=== PATIENT | female | born 1980 | race Caucasian/White ===

== ENCOUNTER 2018-04-29 02:01 | Emergency (ER) | payer BC, OTHER ==
[2018-04-29] MEDS ORDERED: IPRATROPIUM/ALBUTEROL 3 ML VIAL NEB ONE (02:27)
--- NOTE | 2018-04-29 02:39 | ED.PDOC ---
History of Present Illness - General Chief Complaint: Respiratory Problem Stated Complaint: coughing, 34 weeks Time Seen by Provider: 04/29/18 02:26 Source: patient Exam Limitations: no limitations - History of Present Illness Comments: Tashia Botello 37 y/o female 34w EGA LMP-11 Sep 2017 Ab0 EDC14 Jun 2017 came to er with non productive cough starting this am.No ill contact at home .denies fever ,SOB.Continue to smoke 1/2 ppd. Timing/Duration: this morning Cough Quality/Degree: moderate, dry cough Possible Cause: occasional episodes, allergen exposure Improving Factors: nothing Worsening Factors: nothing Associated Symptoms: nasal congestion, other - see hpi Respiratory Risk Factors: exposure to allergen Allergies/Adverse Reactions: Allergies Penicillins Allergy (Verified 04/29/18 02:36) Home Medications: Ambulatory Orders Albuterol Inhaler [Ventolin Hfa Inhaler] 108 mcg IN Q6HRS #1 inh 04/29/18 Azithromycin [Zithromax Z-Sundar] 250 mg PO DAILY 6 Days #6 tab 04/29/18 Review of Systems - Review of Systems Constitutional: States: no symptoms reported EENTM: States: see HPI, nose congestion Respiratory: States: see HPI, cough Gastrointestinal/Abdominal: States: no symptoms reported Genitourinary: States: no symptoms reported Musculoskeletal: States: no symptoms reported Skin: States: no symptoms reported Past Medical History (General) - Patient Medical History Hx Seizures: No Hx Asthma: No Hx of COPD: No Hx Cardiac Disorders: No Hx Congestive Heart Failure: No Hx Hypertension: No Surgical History: no surgical history - Vaccination History Hx Tetanus, Diphtheria Vaccination: No Hx Influenza Vaccination: Yes Hx Pneumococcal Vaccination: No - Social History Hx Tobacco Use: Yes Years Tobacco Use: 10 Cigarettes Packs Per Day: 10 Hx Alcohol Use: No Hx Physical Abuse: No Hx Emotional Abuse: No Hx Suspected Abuse: No - Activities of Daily Living Patient Lives Alone: No - Female History Patient is a Female of Child Bearing Age (10 -59 yrs old): Yes Hx Last Menstrual Period: 09/11/17 Patient : Yes Expected Date of Delivery:: 06/18/18 Hx Gestational Age: 34 Family Medical History - Family History Mother Family History: No Known Physical Exam - Physical Exam General Appearance: Alert, Comfortable, No apparent distress Eye Exam: bilateral normal ENT Exam: hearing grossly normal, TMs normal, pharynx normal, nasal congestion Neck: supple, normal inspection, trachea midline Respiratory: chest non-tender, lungs clear, normal breath sounds, no respiratory distress Cardiovascular/Chest: normal peripheral pulses, regular rate, rhythm, no murmur Gastrointestinal/Abdominal: non tender, soft, other - gravid uterus,FHR-138;FH-3 5 cms. Neurologic: alert, oriented x 3 Skin Exam: normal color, warm/dry Progress - Progress Progress: 04/29/18 02:42 Vital Signs - 8 hr 04/29/18 04/29/18 02:18 02:23 Temperature 98.5 F Pulse Rate [ 117 H left] Respiratory 22 24 Rate Blood Pressure 122/86 [left] O2 Sat by Pulse 94 L Oximetry - Results/Orders Results/Orders: Vital Signs - 8 hr 04/29/18 04/29/18 04/29/18 02:18 02:23 02:42 Temperature 98.5 F Pulse Rate 120 H Pulse Rate [ 117 H left] Respiratory 22 24 20 Rate Blood Pressure 122/86 [left] O2 Sat by Pulse 94 L 95 Oximetry - EKG/XRAY/CT XRAY: chest - no acute abnormalities Departure - Departure Clinical Impression: Bronchitis Time of Disposition: 03:58 Disposition: Discharge to Home or Self Care Condition: Fair Departure Forms: ED Discharge - Pt. Copy, Patient Portal Self Enrollment Instructions: Smoking: Not Just Harmful to Your Lungs and Heart, Smoking in Referrals: Denny Yu MD [Primary Care Provider] - 1-2 Weeks Prescriptions: Albuterol Inhaler [Ventolin Hfa Inhaler] 108 mcg IN Q6HRS #1 inh Azithromycin [Zithromax Z-Sundar] 250 mg PO DAILY 6 Days #6 tab Home Medications: Ambulatory Orders Albuterol Inhaler [Ventolin Hfa Inhaler] 108 mcg IN Q6HRS #1 inh 04/29/18 Azithromycin [Zithromax Z-Sundar] 250 mg PO DAILY 6 Days #6 tab 04/29/18 Additional Instructions: May take over the counter cough medicine MUCINEX-DM 1-2 teaspoon 3 x a day;Zyrtec Tablet one tablet in am;Benadryl capsules 50 mg at bedtime;follow up with primary Md 30 Apr 2018 for re-check.
[2018-04-29 03:13] VITALS: O2SAT 95
--- NOTE | 2018-04-29 03:54 | RAD ---
EXAM: Chest,1 View CLINICAL INDICATION: 37-year-old female with cough. TECHNIQUE: Single view, AP portable chest was obtained. COMPARISON: None. FINDINGS: Unremarkable cardiac and mediastinal silhouette. Heart size is normal. Lungs are clear without focal opacity, pneumothorax or pleural effusions. The visualized bones are within normal limits. IMPRESSION: No acute cardiopulmonary abnormalities. Electronically signed by: Valentina Stratton MD 04/29/2018 3:53 AM MANOMETER TECHNICIAN
[2018-04-29] MEDS ORDERED: AZITHROMYCIN 250 MG TAB PO ONE (03:58)
[2018-04-29 04:23] VITALS: BP 134/74; TEMP 98.9
== END 2018-04-29 04:23 | disposition home or self-care (01) ==
LOC: ER 02:01
DX: O99.513 Diseases of the respiratory system complicating pregnancy, third trimester (principal); J40 Bronchitis, not specified as acute or chronic; O99.333 Smoking (tobacco) complicating pregnancy, third trimester; F17.210 Nicotine dependence, cigarettes, uncomplicated; Z3A.34 34 weeks gestation of pregnancy; Z88.0 Allergy status to penicillin
CPT/HCPCS: 71045; 85025; 94640; J7620; Q0144

== ENCOUNTER → 2019-07-28 | Outpatient (CLI) | payer OTHER | LOC: LAB.O 12:12 | PROVIDERS: ATTEND Obstetrics & Gynecology | DX: Z3A.22 22 weeks gestation of pregnancy (principal) ==

== ENCOUNTER → 2019-08-02 | Outpatient (CLI) | payer OTHER | LOC: LAB.O 09:00 | PROVIDERS: ATTEND Obstetrics & Gynecology | DX: Z13.1 Encounter for screening for diabetes mellitus (principal); Z3A.23 23 weeks gestation of pregnancy; Z20.2 Contact with and (suspected) exposure to infections with a predominantly sexual mode of transmission ==